=== PATIENT | female | born 1965 | race Caucasian/White ===

== ENCOUNTER 2024-05-12 07:05 | Day surgery (SDC) | payer OTHER ==
[~2024-05-12] VITALS: Ht 167.6 cm; Wt 96.2 kg
[2024-05-12] VITALS (25 sets, daily range): BP systolic 79–183; BP diastolic 57–146
[~2024-05-12 07:05] MED LIST: ALBU90OI INH; ATEN25 PO; ATOM40 PO; BUTASPCAF PO; CLON1 PO; DOTTI1 EAC6 TD; ESTRADIOL1 EAC2 TOP; Lactated Ringer's 1,000 ML IV SCH; NEURONTIN300 MG PO; TIZANIDINE HCL213 PO; TOPI100 PO; TOPI25 PO; ZOLP10 PO
[2024-05-12] MEDS ORDERED: ESTEST.62T PO (07:31)
--- NOTE | 2024-05-12 07:53 | NUR ---
History, Chart, Medications and Allergies reviewed before start of procedure. Ambulatory in Day Surgery WITH [facility] GAIT. Pre-Op teaching done. Pt verbalizes understanding. Patient States Post-Procedure ride home has been arranged WITH DAUGHTER.
[2024-05-12] MEDS ORDERED: Benzocaine Oral Spray 0.5ML UD ONE (07:55)
[2024-05-12] MEDS ORDERED: propofoL 60 ML IV ONE (07:56)
--- NOTE | 2024-05-12 08:00 | NUR ---
05/12/24 0800 Haley Viera HISTORY, CHART, MEDICATIONS AND ALLERGIES REVIEWED BEFORE START OF PROCEDURE. PATIENT CONFIRMS NPO STATUS AND AGREES WITH SCHEDULED PROCEDURE. 3-LEAD EKG REVIEWED WITH PHYSICIAN PRIOR TO START OF PROCEDURE. MONITOR INTACT WITH CONTINUOUS PULSE OXIMETRY,CAPNOGRAPHY, 3-LEAD EKG, INTERMITTENT BP. SUPPLEMENTAL O2 TO BE TITRATED THROUGHOUT PROCEDURE TO MAINTAIN O2 SATURATION ABOVE 90%. PATIENT DETERMINED TO BE ASA APPROPRIATE FOR PROPOFOL SEDATION PRIOR TO START OF PROCEDURE BY DR. MCCARTHY. MALLAMPATI CLASS 2 AIRWAY: COMPLETE VISUALIZATION OF THE UVULA.
[2024-05-12] MEDS ORDERED: Midazolam HCl 1MG / ML 2ML Vial ONE (08:14)
--- NOTE | 2024-05-12 09:31 | NUR ---
PT A&OX4, BREATHING RA, VSS, NO ACUTE CONCERNS. PT SORE TO INFILTRATED IV SITE- WARM COMPRESS SENT HOME C PT, NO NEW INTERVENTIONS PER DR MCCARTHY. Patient up to Ambulate independently. Gait steady.PT UP TO BR, VOIDED. Discharge instructions reviewed with patient. Patient verbalizes understanding. Copy given to patient to take home.PT TOLERATING PO FLUIDS. Discharged via wheelchair to private car for ride home.
== END 2024-05-12 09:25 | disposition home or self-care (01) ==
LOC: ORSCMMR 07:05 → ORD 08:00 → ORSCMMR 09:25
PROVIDERS: Internal Medicine Gastroenterology
PROC: 0D758ZZ Dilation of Esophagus, Via Natural or Artificial Opening Endoscopic (ICD-10-PCS; principal; 2024-05-12 08:00)
PROC: 0DB48ZX Excision of Esophagogastric Junction, Via Natural or Artificial Opening Endoscopic, Diagnostic (ICD-10-PCS; principal; 2024-05-12 08:00)
PROC: 0DB58ZX Excision of Esophagus, Via Natural or Artificial Opening Endoscopic, Diagnostic (ICD-10-PCS; principal; 2024-05-12 08:00)
PROC: 0DB98ZX Excision of Duodenum, Via Natural or Artificial Opening Endoscopic, Diagnostic (ICD-10-PCS; principal; 2024-05-12 08:00)
PROC: 0DJD8ZZ Inspection of Lower Intestinal Tract, Via Natural or Artificial Opening Endoscopic (ICD-10-PCS; principal; 2024-05-12 08:00)
DX: R11.2 Nausea with vomiting, unspecified (principal); R13.14 Dysphagia, pharyngoesophageal phase; K22.2 Esophageal obstruction; Z12.11 Encounter for screening for malignant neoplasm of colon; K57.30 Diverticulosis of large intestine without perforation or abscess without bleeding; F32.A Depression, unspecified; F41.9 Anxiety disorder, unspecified; F17.290 Nicotine dependence, other tobacco product, uncomplicated; Z79.899 Other long term (current) drug therapy
CPT/HCPCS: 88305; A9270; C1726; J2250; J2704

== ENCOUNTER → 2025-02-03 | Outpatient (CLI) | payer OTHER ==
[~2025-02-03] MED LIST changes: +ESTEST.62T PO; -Lactated Ringer's 1,000 ML IV SCH
== END ==
LOC: LAB 17:13 → LAB SHORT 17:13
DX: N39.0 Urinary tract infection, site not specified (principal)
CPT/HCPCS: 87086

== ENCOUNTER → 2025-09-14 | Outpatient (CLI) | payer OTHER | LOC: LAB SHORT 19:07 → LAB 19:07 | DX: Z00.00 Encounter for general adult medical examination without abnormal findings (principal) | CPT/HCPCS: 82306; 82607; 82746 ==